=== PATIENT | female | born 1970 | race Caucasian/White ===

== ENCOUNTER → 2022-06-12 | Day surgery (SDC) | payer OTHER ==
[2022-06-10 10:05] VITALS: BMI 23.7
--- NOTE | 2022-06-11 12:27 | P.HPIHPCON ---
History of Present Illness H&P Date: 06/11/22 Chief Complaint: Right ureteral stone This is a 51-year-old female with history of an 8 mm right-sided ureteral stone, she symptomatic from her stone. Option of ESWL versus ureteroscopy with holmium laser was discussed with her. Discussed risk and benefit of each approach. She agreed to proceed with right-sided ureteroscopy with holmium laser. Discussed the risk which includes but not limited to bleeding, infection, injury to the ureter. Discussed also risk from anesthesia. She understood all the risk and agreed to proceed with right-sided ureteroscopy, holmium laser lithotripsy, stone basketing and stent insertion Consent for Procedure: I have explained the operation/procedure to the patient, including the risks, benefits, side effects, alternative therapies (including not receiving the proposed treatment or service), the likelihood of the patient achieving his/her goals, and potential recuperation problems for the procedure/sedation/analgesia, as well as any blood products, if indicated. I also explained to the patient the risks, benefits and side effects of the alternatives, as well as the risks related to not receiving the proposed procedure, care, treatment, or services. Past Medical History Past Medical History: Sleep Apnea/CPAP/BIPAP Additional Past Medical History / Comment(s): kidney stones, doesn't use anything for sleep apnea History of Any Multi-Drug Resistant Organisms: None Reported Additional Past Surgical History / Comment(s): laparoscopies, lipomas removed, colonoscopy Past Anesthesia/Blood Transfusion Reactions: Previous Problems w/ Anesthesia Additional Past Anesthesia/Blood Transfusion Reaction / Comment(s): difficulty waking up from anesthesia Smoking Status: Never smoker Medications and Allergies Home Medications Medication Instructions Recorded Confirmed Type Ascorbic Acid [Vitamin C] 500 mg PO DAILY 05/22/22 06/10/22 History Calcium Carbonate [Calcium] 600 mg PO DAILY 05/22/22 06/10/22 History Multivitamin [Multivitamins Adult 1 each PO DAILY 05/22/22 06/10/22 History Gummies] Allergies Allergy/AdvReac Type Severity Reaction Status Date / Time sulfamethoxazole Allergy Rash/Hives Verified 06/10/22 09:58 [From Bactrim] trimethoprim [From Bactrim] Allergy Rash/Hives Verified 06/10/22 09:58 Surgical - Exam - General no distress, no pain - Eyes normal ocular movement, no pale - ENT normal nares, normal mucosa - Respiratory normal expansion, normal respiratory effort - Abdomen Abdomen: soft, non tender Assessment and Plan Assessment: OR for right-sided ureteroscopy, holmium laser lithotripsy, stone basketing and stent insertion
[~2022-06-12] MED LIST: DEXAMETHASONE SOD PHOSPHATE 4 MG/ML 1 ML VIAL IV ONE; HYDROmorphone 0.5 MG/0.5 ML SYRINGE IVP PRN; IOPAMIDOL-370 50ML BTL IRRIGATION ONE; KETOROLAC 15 MG/ML 1 ML VIAL IVP ONE; LACTATED RINGERS 1,000 ML IV ONE; LACTATED RINGERS 1,000 ML IV SCH; LIDOCAINE 1% (10MG/ML) FOR IV START INTRADERMA PRN; LIDOCAINE 2% INJ 20 MG/ML (2 ML VIAL) ONE; MIDAZOLAM 2 MG/2 ML VIAL ONE; ONDANSETRON 4 MG/2 ML VIAL IVP ONE; PROPOFOL 10 MG/ML 20 ML VIAL IV ONE; fentaNYL (PF) 50 MCG/ML 2 ML AMP ONE
--- NOTE | 2022-06-12 14:04 | XR ---
EXAMINATION TYPE: XR KUB DATE OF EXAM: 06/12/2022 1:40 PM INDICATION: Patient age:Female; 51 years old; Reason for study: kidney stones; COMPARISON: None. TECHNIQUE: One radiographic view of the abdomen was obtained. FINDINGS: The bowel gas pattern is nonspecific without dilated loops of small or large bowel. The os seous structures are intact. Fecal material and gas are demonstrated throughout the colon and rectum. Calcification projecting over the right pelvis. IMPRESSION: Right pelvis calcific density which is nonspecific could represent a distal ureter calculus. Consider CT renal stone protocol for exact localization.
[2022-06-12 16:37] VITALS: TEMP 97
--- NOTE | 2022-06-12 16:38 | P.OP ---
Date of Procedure: 06/12/22 Preoperative Diagnosis: Right ureteral stone Postoperative Diagnosis: Same Procedure(s) Performed: Cystoscopy, right ureteroscopy, holmium laser lithotripsy, stone basketing Implants: None Anesthesia: LUISA Surgeon: Carl Krishnamurthy Estimated Blood Loss (ml): 5 Pathology: other (right ureteral stone) Condition: stable Disposition: PACU Indications for Procedure: This is a 51-year-old female with history of an 8 mm right-sided ureteral stone, she symptomatic from her stone. Option of ESWL versus ureteroscopy with holmium laser was discussed with her. Discussed risk and benefit of each approach. She agreed to proceed with right-sided ureteroscopy with holmium laser. Discussed the risk which includes but not limited to bleeding, infection, injury to the ureter. Discussed also risk from anesthesia. She understood all the risk and agreed to proceed with right-sided ureteroscopy, holmium laser lithotripsy, stone basketing and stent insertion Operative Findings: right distal stone Description of Procedure: Patient brought to the operating room, general anesthesia was induced. She was prepped and draped in sterile fashion and placed in a dorsal lithotomy position. Cystoscopy fitted with a 21-Kyr[place]z sheath was inserted per urethra, cystoscopy was performed which showed no abnormality within the bladder. Attention was then carried to the right ureteral orifice which was intubated with a sensor wire. Next a ureteral balloon dilator was passed over the wire, and the ureteral orifice was dilated using the balloon dilator to 12-Kyrgyz. At this time the balloon dilator was removed with the wire in place. Next a semirigid ureteroscope was inserted through the urethra and up the right ureteral orifice, the distal stone was encountered. Using the holmium laser the stone was frag mented into small fragments, sizable fragment was removed using the stone basket. At this time the ureteroscope was advanced all the way up to the UPJ which showed no additional stones or fragments. Pullback ureteroscopy was performed which showed no injury to the ureter or any sizable fragments, there was minimal ureteral edema thus a stent was not placed. The bladder was emptied at the end of the case, the stones were sent for analysis. Patient tolerated the procedure well was taken to recovery in stable condition
[2022-06-12 18:09] VITALS: BP 158/89; PULSE 78; RESP 18
== END | disposition home or self-care (01) ==
LOC: OR 13:26
PROVIDERS: ATTEND Urology
DX: N20.1 Calculus of ureter (principal); Z88.2 Allergy status to sulfonamides
CPT/HCPCS: 82365; 74018; 52353; J1100; J0690; J2405; J1885; Q9967

== ENCOUNTER → 2022-06-30 | Outpatient (CLI) | payer OTHER ==
--- NOTE | 2022-06-30 18:36 | US ---
EXAMINATION TYPE: US kidneys/renal and bladder DATE OF EXAM: 06/30/2022 COMPARISON: 06/12/2022 radiograph CLINICAL HISTORY: 51-year-old female N20.0 Right kidney stone. Right kidney stone removed couple week s ago, recent left flank pain TECHNIQUE: Multiple sonographic images of the kidneys and bladder are obtained. FINDINGS: EXAM MEASUREMENTS: Right Kidney: 9.6 x 4.8 x 4.9 cm Left Kidney: 11.4 x 4.7 x 4.9 cm Right Kidney: Mild to moderate hydronephrosis Left Kidney: Mild pelvicaliectasis. Bladder: wnl Bilateral Jets seen: yes IMPRESSION: [id number] right hydronephrosis and mild left-sided pelvicaliectasis/hydronephrosis. Further ev aluation as clinically indicated.
== END | disposition home or self-care (01) ==
LOC: RADUSWWP 12:15
PROVIDERS: ATTEND Urology
DX: N13.30 Unspecified hydronephrosis (principal)
CPT/HCPCS: 76770

== ENCOUNTER → 2022-07-16 | Outpatient (CLI) | payer OTHER ==
--- NOTE | 2022-07-17 07:19 | CT ---
EXAMINATION TYPE: CT abdomen pelvis wo con CT DLP: 321.7 mGycm, Automated exposure control for dose reduction was used. DATE OF EXAM: 07/16/2022 4:42 PM COMPARISON: Ultrasound 06/30/2022 CLINICAL INDICATION:Female, 52 years old with history of N13.30 Hydronephrosis; hydronephrosis, left flank pain TECHNIQUE: Axial CT of the abdomen and pelvis. Sagittal and coronal reformats were created on a [email or web address] workstation. Contrast used: None Oral contrast used: without Oral Contrast FINDINGS: LOWER CHEST: Unremarkable ABDOMEN LIVER: Unremarkable GALLBLADDER AND BILE DUCTS: Unremarkable. PANCREAS: Unremarkable. SPLEEN: Small splenule is present. ADRENAL GLANDS: Unremarkable. KIDNEYS AND URETERS: No evidence of hydronephrosis seen bilaterally. There is nonobstructing calculi in the left measuring up to 3 mm. PELVIS BLADDER: Unremarkable REPRODUCTIVE: Unremarkable. ABDOMEN & PELVIS STOMACH AND BOWEL: No evidence of bowel obstruction. Large stool burden throughout the colon. PERITONEUM: No evidence of pneumoperitoneum or free fluid. VASCULATURE: No evidence of aortic aneurysm. Atherosclerosis of the arterial vasculature. MUSCULOSKELETAL: No acute osseous abnormalities LYMPH NODES: No gross evidence for lymphadenopathy. SOFT TISSUE/ABDOMINAL WALL: Fat-containing umbilical hernia. IMPRESSION: 1. No acute intra-abdominal process. 2. No evidence of obstructive uropathy. 3. Nonobstructing left renal calculi. 4. Large stool burden throughout the colon
== END | disposition home or self-care (01) ==
LOC: RADCTMAIN 16:09
PROVIDERS: ATTEND Urology
DX: N13.2 Hydronephrosis with renal and ureteral calculous obstruction (principal); R19.5 Other fecal abnormalities
CPT/HCPCS: 74176